=== PATIENT | female | born 1945 | race Caucasian/White ===

== ENCOUNTER 2024-07-08 17:06 | Emergency (ER) | payer OTHER, SELFPAY ==
[2024-07-08 17:08] VITALS: BP 155/78
--- NOTE | 2024-07-08 17:12 | EDRN ---
pt refusing imaging at this time.
--- NOTE | 2024-07-08 20:10 | ED.MUSCINJ ---
HPI-Injury
General
Chief Complaint: Fall
Source: patient
Exam Limitations: none
Time Seen by Provider: 07/08/24 19:18
Nursing documentation reviewed up to this point in time: agreed with
History of Present Illness-Injury
Is this injury a work related problem?: No
Is pt an associate of [facility]?: No
Initial Injury comments:
Patient states she fell while dancing. Hit back of head on floor. No LOC. Complains of mild headache, left elbow swelling, tenderness to buttocks. Incident occurred just PUTTIER
Past History
Past History
ED Past Medical History: Other (chronic back pain)
ED Past Surgical History: Orthopedic
Review of Systems
Review of Systems
Allergies reviewed?: Yes
All Other Systems: ROS reviewed and negative except as documented in HPI and ROS
Constitutional: Reports no symptoms
EENT: Reports no symptoms
Respiratory: Reports no symptoms
Cardiac: Reports no symptoms
ABD/GI: Reports no symptoms
Musculoskeletal: Reports joint swelling (swelling left posterior elbow)
Skin: Reports no symptoms
Neurological: Reports headache
Psychiatric: Reports no symptoms
Musculoskeletal Injury Exam
Musculoskeletal Injury Exam
Left Posterior Elbow:
Pain with Movement?: None
Tender to palpation?: Mild
Soft tissue swelling?: Moderate
External deformity and angulation?: None
Contusion?: Moderate
Hematoma-local bleeding into tissue?: Moderate
Strain- Sprain- Tear (Connective tissue injury)?: None
Crepitus with movement?: No
Joint instability?: No
Malalignment/deformity?: No
Range of motion: Full
Distal skin color and temperature: normal-warm & good color
Capillary Refill: normal
Normal distal neurovascular exam?: Yes
Peripheral Pulses: radial (left): 3+
Phy Exam
General Physical Exam
General Presentation: well appearing and no apparent distress
General age: appears stated age
General Skin: warm and dry
General Habitus: normal
General Mental: alert
Neurological Exam
Neurological Exam: alert, oriented x3, CN II-XII intact, no motor deficits, no sensory deficits, speech normal and normal gait
[place] Coma Scale
Eye Opening: Spontaneous
Verbal Response: Oriented
Motor Response: Obeys Commands
GCS Total Score: 15
Mental
Mental Status: oriented to person, oriented to place, oriented to time and usual mental status
Describe Speech: normal speech
Cranial
Cranial Nerves: normal
EOM (CN3/4/6): intact
Motor
Seizure Activity: none
Gait: normal
Tremors: none
Musculoskeletal Exam
Musculoskeletal Exam: neuro vasc intact
Skin Exam
Skin Exam: normal color, warm/dry and no rash
Psychiatric Exam
Psychiatric Exam: normal mood/affect
Injury Course
Orders/Labs/Results
Orders:
Orders
07/08/24 19:26
CT Head W/o Iv Contrast Urgent
Comment:
Reason For Exam: trauma
Elbow, Left [CR Elbow - Left Min 3 Views ] Urgent
Comment:
Reason For Exam: trauma
*Radiology
Radiology exam reviewed: radiology read reviewed
*Pulse Oximetry
Patient hypoxic: no
*Critical Care Note
Total Time (30-74mins, 75-104mins- exclusive of procedures): Not Applicable
ED Attending Note
-
Portions of this chart may have been created with voice recognition software.� Occasional wrong word or��sound alike� substitutions may have occurred due to the inherent limitations of voice recognition software.
Discharge Plan
Departure
Patient Disposition: Home (Routine Discharge)
Date of Disposition: 07/08/24
Time of Disposition: 20:03
Patient with high blood pressure during this ER visit?: No
Condition: Good
Covid-19: Not Applicable
Discharge Problem:
Head injury, Contusion of elbow
Instructions: Head Injury in Adults (DC), Contusion (DC), RICE Therapy
Referrals:
Luc Verdin MD [Family Provider] - Follow up in 2-3 days
Interventions
Interventions:
*Risk Screen - Suicide Last Done: 07/08/24 19:11
*General Assessment Last Done: 07/08/24 19:11
*Neglect/Abuse Screening Last Done: 07/08/24 19:11
ED- Fall Risk Assessment Last Done: 07/08/24 19:11
*ED COVID-19 Vaccine History Last Done: 07/08/24 19:11
*Nursing Disposition Last Done: 07/08/24 20:11
ED-Musculoskeletal Assessment Last Done: 07/08/24 19:11
ED- Neurological Assessment Last Done: 07/08/24 19:11
ED-Skin Assessment Last Done: 07/08/24 19:11
Discharge Date and Time
Print Language: KAZAKH
== END 2024-07-08 20:16 | disposition home or self-care (01) ==
LOC: EMR 17:06
PROVIDERS: EMERGENCY PHYSICIAN Emergency Medicine; FAMILY PHYSICIAN Family Medicine
DX: S09.90XA Unspecified injury of head, initial encounter (principal); S50.02XA Contusion of left elbow, initial encounter; W19.XXXA Unspecified fall, initial encounter
CPT/HCPCS: 99284; 70450; 73080

== ENCOUNTER 2024-08-27 15:44 | Emergency (ER) | payer OTHER, SELFPAY ==
[2024-08-27 15:53] VITALS: BP 137/40
--- NOTE | 2024-08-27 15:56 | ED.GENMED ---
ED Provider Triage
<Daryl Hassan PA-C - Last Filed: 08/27/24 15:57>
-
Patient seen by provider in Triage?: Seen in Triage
79-year-old female with intermittent fever over 2 weeks with associated cough. It started as laryngitis where she lost her voice. Her voice has returned. She has been seen by the family doctor and just finished a 5-day course of doxycycline 100
mg twice a day. She is also on Tessalon without improvement. No recent travel or surgery. She notes a right sided chest wall discomfort. Temperature last evening was 101 degrees
No respiratory distress on triage. Not hypoxic. Chest x-ray labs COVID flu test ordered.
History of Present Illness
<Daryl Hassan PA-C - Last Filed: 08/27/24 15:57>
General
Chief Complaint: Fever
Time Seen by Provider: 08/27/24 20:55
<Giana Edmond WELL DRILL OPERATOR - Last Filed: 08/27/24 23:24>
General
Source: patient
Exam Limitations: none
Nursing documentation reviewed up to this point in time: agreed with
History of Present Illness
History of Present Illness:
79 yo female with no significant PMHX states she developed cough and laryngitis 2 weeks ago. PCP put her on Doxycycline 100 mg BID for 5 days which she finished 3 days ago and her symptoms have not improved.
She developed fever 101.0 last night and pain in her right ribs. Cough has not improved.
Denies n/v/d/c.
Past History
<Daryl Hassan PA-C - Last Filed: 08/27/24 15:57>
Past History
ED Past Medical History: Other (chronic back pain)
ED Past Surgical History: Orthopedic
<Giana Edmond WELL DRILL OPERATOR - Last Filed: 08/27/24 23:24>
Past History
ED Past Medical History: Other (chronic back pain, followed by pain management)
ED Past Surgical History: Cholecystectomy
Social History
Tobacco: Former smoker
Alcohol: None
Personal: Single
Living: alone
Review of Systems
<Giana Edmond WELL DRILL OPERATOR - Last Filed: 08/27/24 23:24>
Review of Systems
Allergies reviewed?: Yes
All Other Systems: ROS reviewed and negative except as documented in HPI and ROS
Constitutional: Reports fever; Denies chills
EENT: Denies sore throat
Respiratory: Reports cough; Denies trouble breathing
Cardiac: Reports other (pain right ribs); Denies chest pain
ABD/GI: Denies abdominal pain, nausea, vomiting, diarrhea or anorexia
: Denies dysuria
Musculoskeletal: Denies edema
Skin: Reports no symptoms
Neurological: Reports no symptoms
Phy Exam
<Giana Edmond, WELL DRILL OPERATOR - Last Filed: 08/27/24 23:24>
Physical Exam
Physical Exam:
GENERAL: No acute distress. A&Ox3.
CONSTITUTIONAL: Afebrile.
EYES: clear, conjunctivae normal
ENMT: moist mucus membranes, Pharynx nl
RESPIRATORY: Regular respirations, nonlabored, lungs clear.
CARDIOVASCULAR: Regular rate and rhythm, no murmurs, no rubs.
GI: Soft, nontender, normal BS
MUSCULOSKELETAL: Moves with ease. Well perfused.
SKIN: Warm, dry, pink
PSYCH: Normal mood and affect. Well kept, interactive and appropriate
NEUROLOGIC: Awake, alert and oriented. No focal neurological deficits
Course
<Daryl Hassan PA-C - Last Filed: 08/27/24 15:57>
Orders/Labs/Results
Orders:
Orders
08/27/24 15:53
CR Chest - 2 Views Urgent
Comment:
Reason For Exam: fever, cough
08/27/24 16:03
COVID-19 Antigen Urgent
Source: Nasal Swab
Complete Blood Count/With Diff Urgent
Comprehensive Metabolic Panel Urgent
Influenza A+B Rapid Molecular Urgent
MICHA Source: Nasal Swab
Specimen Description:
08/27/24 21:34
LevoFLOXacin [Levaquin] 750 mg PO NOW STA
08/27/24 21:42
Urinalysis Reflex To Culture Urgent
Date Specimen was Collected: 08/27/24
Time Specimen was Collected: 21:33
Urine Microscopic Reflex Cult Urgent
Abnormal Lab Results
08/27/24 08/27/24
16:03 21:42
WBC 18.0 H 10^3/uL
(4.8-10.8)
MCHC 32.5 L g/dL
(33.0-37.0)
Abs Immat Gran (auto) 0.1 H 10^3/uL
(0-0.05)
Absolute Neuts (auto) 16.0 H 10^3/uL
(1.4-6.5)
Absolute Lymphs (auto) 0.9 L 10^3/uL
(1.2-3.4)
Absolute Monos (auto) 1.0 H 10^3/uL
(0.1-0.6)
Immature Gran % 0.6 H %
(0-0.5)
Neutrophils % 88.8 H %
(42.2-75.2)
Lymphocytes % 5.0 L %
(20.5-51.1)
Chloride 94 L mmol/L
(98-107)
Carbon Dioxide 31 H mmol/L
(22-30)
BUN 21 H mg/dl
(7-17)
Creatinine 1.2 H mg/dL
(0.6-1.0)
Glucose 145 H mg/dl
(70-99)
Alkaline Phosphatase 195 H U/L
(38-126)
Ur Occult Blood Reflex Trace A
(Negative)
Urine Bacteria (Reflex) Few A
(Negative)
08/27/24 16:03
08/27/24 16:03
Vital Signs
Initial and Last Documented VS:
Initial Vital Signs
Temp Pulse Resp BP Pulse Ox
98.2 F 98 16 137/40 94
08/27/24 15:53 08/27/24 15:53 08/27/24 15:53 08/27/24 15:53 08/27/24 15:53
Last Documented Vital Signs
Temp Pulse Resp BP Pulse Ox
100 F 83 18 161/85 98
08/27/24 21:36 08/27/24 21:36 08/27/24 21:36 08/27/24 21:36 08/27/24 21:36
<Giana Edmond, WELL DRILL OPERATOR - Last Filed: 08/27/24 23:24>
Orders/Labs/Results
Orders:
Orders
08/27/24 15:53
CR Chest - 2 Views Urgent
Comment:
Reason For Exam: fever, cough
08/27/24 16:03
COVID-19 Antigen Urgent
Source: Nasal Swab
Complete Blood Count/With Diff Urgent
Comprehensive Metabolic Panel Urgent
Influenza A+B Rapid Molecular Urgent
MICHA Source: Nasal Swab
Specimen Description:
08/27/24 21:34
LevoFLOXacin [Levaquin] 750 mg PO NOW STA
08/27/24 21:42
Urinalysis Reflex To Culture Urgent
Date Specimen was Collected: 08/27/24
Time Specimen was Collected: 21:33
Urine Microscopic Reflex Cult Urgent
Abnormal Lab Results
08/27/24 08/27/24
16:03 21:42
WBC 18.0 H 10^3/uL
(4.8-10.8)
MCHC 32.5 L g/dL
(33.0-37.0)
Abs Immat Gran (auto) 0.1 H 10^3/uL
(0-0.05)
Absolute Neuts (auto) 16.0 H 10^3/uL
(1.4-6.5)
Absolute Lymphs (auto) 0.9 L 10^3/uL
(1.2-3.4)
Absolute Monos (auto) 1.0 H 10^3/uL
(0.1-0.6)
Immature Gran % 0.6 H %
(0-0.5)
Neutrophils % 88.8 H %
(42.2-75.2)
Lymphocytes % 5.0 L %
(20.5-51.1)
Chloride 94 L mmol/L
(98-107)
Carbon Dioxide 31 H mmol/L
(22-30)
BUN 21 H mg/dl
(7-17)
Creatinine 1.2 H mg/dL
(0.6-1.0)
Glucose 145 H mg/dl
(70-99)
Alkaline Phosphatase 195 H U/L
(38-126)
Ur Occult Blood Reflex Trace A
(Negative)
Urine Bacteria (Reflex) Few A
(Negative)
08/27/24 16:03
08/27/24 16:03
Vital Signs
Initial and Last Documented VS:
Initial Vital Signs
Temp Pulse Resp BP Pulse Ox
98.2 F 98 16 137/40 94
08/27/24 15:53 08/27/24 15:53 08/27/24 15:53 08/27/24 15:53 08/27/24 15:53
Last Documented Vital Signs
Temp Pulse Resp BP Pulse Ox
100 F 83 18 161/85 98
08/27/24 21:36 08/27/24 21:36 08/27/24 21:36 08/27/24 21:36 08/27/24 21:36
<Giana Edmond WELL DRILL OPERATOR - Last Filed: 08/27/24 23:24>
MDM/Problems Addressed
Differential Diagnosis Includes:
PNA, bronchitis
MDM/Problems Addressed:
79 yo female with no significant PMHX states she developed cough and laryngitis 2 weeks ago. PCP put her on Doxycycline 100 mg BID for 5 days which she finished 3 days ago and her symptoms have not improved.
She developed fever 101.0 last night and pain in her right ribs. Cough has not improved.
CBC: WBC 18.0
CMP: BUN/Creat 21/1.2
Covid neg
Flu neg
CXR: Radiology report read: IMPRESSION:
Mild right upper lobe pneumonia.
Small loculated right pleural effusion versus developing right lower lobe pneumonia.
Pt had PNA in November and states she did well with Levaquin. Rx for Levaquin sent to her pharmacy
Pt is totally non toxic appearing, bright, alert and pleasant
Pt has appt w PCP in 2 days.
Pt just prior to discharge asked if we could 'check my urine.' U/A pending. Will not hold her up for results as Levaquin will most likely cover that too. She is in agreement with this plan.
U/A neg
<Giana Edmond, WELL DRILL OPERATOR - Last Filed: 08/27/24 23:24>
*Critical Care Note
Total Time (30-74mins, 75-104mins- exclusive of procedures): Not Applicable
ED Attending Note
<Daryl Hassan PA-C - Last Filed: 08/27/24 15:57>
-
Portions of this chart may have been created with voice recognition software.� Occasional wrong word or��sound alike� substitutions may have occurred due to the inherent limitations of voice recognition software.
Discharge Plan
Departure
Patient Disposition: Home (Routine Discharge)
Date of Disposition: 08/27/24
Time of Disposition: 21:34
Patient with high blood pressure during this ER visit?: No
Condition: Fair
Covid-19: Negative COVID-19
Discharge Problem:
Pneumonia
Instructions: Pneumonia in adults
Prescriptions:
New
levofloxacin 750 mg tablet
750 mg PO DAILY 4 Days Qty: 4 0RF
Referrals:
Gwen De Leon, [Family Provider] - Keep scheduled appt
Activity Restrictions/Additional Instructions:
As we discussed you have pneumonia.
I sent a prescription for Levaquin to your pharmacy. Start it tomorrow as you were given a dose here today
See your doctor as scheduled in 2 days
Interventions
Interventions:
*Risk Screen - Suicide Last Done: 08/27/24 15:57
*General Assessment Last Done: 08/27/24 21:33
*Neglect/Abuse Screening Last Done: 08/27/24 15:57
ED- Fall Risk Assessment Last Done: 08/27/24 21:44
*ED COVID-19 Vaccine History Last Done: 08/27/24 21:33
*Nursing Disposition Last Done: 08/27/24 22:05
ED- Neurological Assessment Last Done: 08/27/24 21:43
ED-Skin Assessment Last Done: 08/27/24 21:43
Discharge Date and Time
Discharge Date/Time: 08/27/24 22:06
Print Language: YI
[2024-08-27 16:11] LABS: % Basophils 0.3 % (0-2); % Immature Granulocytes 0.6 % (0-0.5); % Monocytes 5.3 % (1.7-9.3); % Neutrophils 88.8 % (42.2-75.2); Absolute Basophils 0.1 10^3/uL (0-0.2); Absolute Immature Granulocytes 0.1 10^3/uL (0-0.05); Absolute Lymphocytes 0.9 10^3/uL (1.2-3.4); Mean Corp Hgb Conc. 32.5 g/dL (33.0-37.0); Mean Corpuscular Hgb 29.3 pg (27.0-31.0); Mean Corpuscular Volume 90.1 fL (81.0-99.0); Mean Platelet Volume 8.5 fL (7.4-10.4); Nucleated Red Blood Cells % 0 %; Platelet Count 381 10^3/uL (130-400); Red Blood Cell Count 4.44 10^6/uL (4.20-5.40); Red Cell Dist. Width 12.7 % (11.5-14.5)
[2024-08-27 16:28] LABS: ALT (SGPT) 18 U/L (0-35); AST (SGOT) 26 U/L (14-36); Albumin 3.6 g/dl (3.5-5.0); Alkaline Phosphatase 195 U/L (38-126); Blood Urea Nitrogen 21 mg/dl (7-17); Calcium 9.5 mg/dl (8.4-10.2); Carbon Dioxide 31 mmol/L (22-30); Chloride 94 mmol/L (98-107); Glucose 145 mg/dl (70-99); Potassium 3.6 mmol/L (3.5-5.1); Sodium 138 mmol/L (135-145); Total Bilirubin 0.9 mg/dl (0.2-1.3); eGFR 46.62
[2024-08-27 16:36] LABS: COVID-19 Antigen Negative (Negative)
[2024-08-27 18:10] VITALS: BP 128/70
[2024-08-27 21:35] VITALS: BMI 19.1
[2024-08-27 21:36] VITALS: BP 161/85
[2024-08-27] MEDS: LEVAQUIN 750 MG PO (21:50)
[2024-08-27 22:16] LABS: Urine Albumin Trace (Neg - Trace); Urine Bilirubin Negative (Negative); Urine Character Clear (Clear); Urine Color Yellow; Urine Glucose Negative (Negative); Urine Ketone Negative (Negative); Urine Leukocyte Negative (Negative); Urine Nitrite Negative (Negative); Urine Occult Blood Trace (Negative); Urine Specific Gravity 1.015 (<1.030); Urine Urobilinogen 1+ (Neg - 1+)
[2024-08-27 22:29] LABS: Urine Mucus Moderate
[2024-08-27 22:30] LABS: Urine Bacteria Few (Negative); Urine Red Blood Cell 0-2 /HPF (0-2)
== END 2024-08-27 22:06 | disposition home or self-care (01) ==
LOC: EMR 15:44
PROVIDERS: Physician Assistant; Registered Nurse; EMERGENCY PHYSICIAN Emergency Medicine; FAMILY PHYSICIAN Family Medicine
DX: J18.9 Pneumonia, unspecified organism (principal); G89.29 Other chronic pain; Z87.891 Personal history of nicotine dependence; Z90.49 Acquired absence of other specified parts of digestive tract
CPT/HCPCS: 99283; 71046; 80053; 81003; 81015; 85025; 87502; 87811

== ENCOUNTER 2024-08-29 14:11 | Emergency (ER) | payer OTHER, SELFPAY ==
[2024-08-29] VITALS (7 sets, daily range): BP systolic 85–177; BP diastolic 55–87; BMI 23.4
[2024-08-29 14:33] LABS: % Basophils 0.2 % (0-2); % Immature Granulocytes 0.6 % (0-0.5); % Lymphocytes 4.9 % (20.5-51.1); % Monocytes 5.6 % (1.7-9.3); % Neutrophils 88.7 % (42.2-75.2); Absolute Immature Granulocytes 0.1 10^3/uL (0-0.05); Absolute Lymphocytes 0.9 10^3/uL (1.2-3.4); Absolute Neutrophils 16.5 10^3/uL (1.4-6.5); Mean Corp Hgb Conc. 32.4 g/dL (33.0-37.0); Mean Corpuscular Hgb 29.3 pg (27.0-31.0); Mean Corpuscular Volume 90.5 fL (81.0-99.0); Mean Platelet Volume 8.5 fL (7.4-10.4); Nucleated Red Blood Cells % 0 %; Platelet Count 401 10^3/uL (130-400); Red Blood Cell Count 4.09 10^6/uL (4.20-5.40); Red Cell Dist. Width 12.9 % (11.5-14.5); White Blood Cell Count 18.6 10^3/uL (4.8-10.8)
[2024-08-29 14:45] LABS: ALT (SGPT) 16 U/L (0-35); AST (SGOT) 21 U/L (14-36); Albumin 3.3 g/dl (3.5-5.0); Alkaline Phosphatase 168 U/L (38-126); Blood Urea Nitrogen 21 mg/dl (7-17); Calcium 9.6 mg/dl (8.4-10.2); Carbon Dioxide 33 mmol/L (22-30); Chloride 92 mmol/L (98-107); Glucose 125 mg/dl (70-99); Potassium 3.5 mmol/L (3.5-5.1); Sodium 136 mmol/L (135-145); Total Bilirubin 0.9 mg/dl (0.2-1.3); Total Protein 6.5 g/dl (6.3-8.2); eGFR 51.75
--- NOTE | 2024-08-29 19:03 | ED.GENMED ---
History of Present Illness
General
Chief Complaint: Breathing Problem
Source: patient and family
Exam Limitations: none
Time Seen by Provider: 08/29/24 18:52
Nursing documentation reviewed up to this point in time: agreed with
History of Present Illness
History of Present Illness:
Patient diagnosed with pneumonia 2 days ago, and started on Levaquin, returns to ED with continual intermittent cough, but worsening lower rib pain. Patient is on day 3 of Levaquin 750 mg. Denies fever or chills. Denies nausea or vomiting.
Denies loss of appetite. Denies diarrhea. Denies abdominal pain. Denies dizziness. Denies headache. Denies neck pain. Of note, patient has had intermittent cough for the past 2 weeks, along with 'laryngitis'.
Past History
Past History
ED Past Medical History: Other (chronic back pain, followed by pain management)
ED Past Surgical History: Cholecystectomy and Orthopedic
Social History
Tobacco: Former smoker
Alcohol: None
Personal: Single
Living: alone
Review of Systems
Review of Systems
Allergies reviewed?: Yes
All Other Systems: ROS reviewed and negative except as documented in HPI and ROS
Constitutional: Reports no symptoms
EENT: Reports no symptoms
Respiratory: Reports cough
Cardiac: Reports chest pain
ABD/GI: Reports no symptoms
: Reports no symptoms
Musculoskeletal: Reports other (rib pain)
Skin: Reports no symptoms
Neurological: Reports no symptoms
Phy Exam
Physical Exam
Physical Exam:
Physical Exam
General: mild painful distress, not acutely ill. afebrile
Head: nc/at. eomi
Neck: supple. no meningeal signs.
Heart: s1/s2 regular rate and rhythm, no murmur. equal radial pulses.
Lungs: no acute respiratory distress. clear bilaterally. mild tenderness to palpation over right lateral rib along midaxillary line at level of rib #10-12, without ecchymosis/swelling/erythema.
Abdomen: normal bowel sounds. not tender.
Neuro: alert and oriented. no focal neurological deficits
Skin: no rash
Psychiatric: well kept. interactive and cooperative
Extremities: no edema. no calf tenderness.
Scores
Heart Failure Risk
Heart Failure Risk Score: Not Applicable
Course
Orders/Labs/Results
Orders:
Orders
08/29/24 14:23
Complete Blood Count/With Diff Urgent
Comprehensive Metabolic Panel Urgent
08/29/24 19:03
CT Chest Pe Study Urgent
Comment:
Reason For Exam: lower CP
Ketorolac [Toradol] 15 mg IV NOW STA
08/29/24 21:11
Ketorolac [Toradol] 15 mg .ROUTE .STK-MED ONE
08/29/24 21:25
Dexamethasone Sod Phosphate [Decadron] 10 mg IV NOW STA
Abnormal Lab Results
08/29/24
14:23
WBC 18.6 H 10^3/uL
(4.8-10.8)
RBC 4.09 L 10^6/uL
(4.20-5.40)
MCHC 32.4 L g/dL
(33.0-37.0)
Plt Count 401 H 10^3/uL
(130-400)
Abs Immat Gran (auto) 0.1 H 10^3/uL
(0-0.05)
Absolute Neuts (auto) 16.5 H 10^3/uL
(1.4-6.5)
Absolute Lymphs (auto) 0.9 L 10^3/uL
(1.2-3.4)
Absolute Monos (auto) 1.0 H 10^3/uL
(0.1-0.6)
Immature Gran % 0.6 H %
(0-0.5)
Neutrophils % 88.7 H %
(42.2-75.2)
Lymphocytes % 4.9 L %
(20.5-51.1)
Chloride 92 L mmol/L
(98-107)
Carbon Dioxide 33 H mmol/L
(22-30)
BUN 21 H mg/dl
(7-17)
Creatinine 1.1 H mg/dL
(0.6-1.0)
Glucose 125 H mg/dl
(70-99)
Alkaline Phosphatase 168 H U/L
(38-126)
Albumin 3.3 L g/dl
(3.5-5.0)
08/29/24 14:23
08/29/24 14:23
Vital Signs
Initial and Last Documented VS:
Initial Vital Signs
Temp Pulse Resp BP Pulse Ox
98.6 F 85 18 122/71 96
08/29/24 14:14 08/29/24 14:14 08/29/24 14:14 08/29/24 14:14 08/29/24 14:14
Last Documented Vital Signs
Temp Pulse Resp BP Pulse Ox
98.7 F 88 23 177/87 92
08/29/24 16:25 08/29/24 21:30 08/29/24 21:30 08/29/24 21:17 08/29/24 21:30
MDM/Problems Addressed
MDM/Problems Addressed:
CTA chest report reviewed and discussed with patient. History and exam consistent with likely bronchitis versus pneumonia, with inflammatory changes noted. Patient will be advised to continue already prescribed antibiotics, but will add course of
steroids for symptomatic relief, along with recommendation to follow-up with PCP for reevaluation next week. In addition, patient advised to take NSAIDs, but states that she already takes Celebrex daily for chronic back pain. Patient otherwise is
afebrile, alert, awake, without any acute respiratory distress, with stable vital signs, at time of discharge.
*Critical Care Note
Total Time (30-74mins, 75-104mins- exclusive of procedures): Not Applicable
ED Attending Note
-
Portions of this chart may have been created with voice recognition software.� Occasional wrong word or��sound alike� substitutions may have occurred due to the inherent limitations of voice recognition software.
Discharge Plan
Departure
Patient Disposition: Home (Routine Discharge)
Date of Disposition: 08/29/24
Time of Disposition: 21:27
Patient with high blood pressure during this ER visit?: Yes
Condition: Good
Discharge Problem:
Pneumonia
Instructions: Pneumonia, Adult (DC)
Prescriptions:
New
methylprednisolone [Medrol (Wu)] 4 mg tablets,dose pack
4 mg PO DAILY Qty: 21 0RF
No Action
levofloxacin 750 mg tablet
750 mg PO DAILY 4 Days Qty: 4 0RF
Referrals:
Gwen De Leon DO [Family Provider] -
Activity Restrictions/Additional Instructions:
As discussed, please follow-up with your primary care physician for reevaluation next week. Your prescription has been sent electronically to [facility] pharmacy in [facility].
Interventions
Interventions:
*Risk Screen - Suicide Last Done: 08/29/24 14:14
*General Assessment Last Done: 08/29/24 14:14
*Neglect/Abuse Screening Last Done: 08/29/24 14:14
ED- Fall Risk Assessment Last Done: 08/29/24 18:12
*ED COVID-19 Vaccine History Last Done: 08/29/24 18:12
*Nursing Disposition Last Done: 08/29/24 22:08
ED- Cardiac Assessment Last Done: 08/29/24 18:14
ED- Pulmonary Assessment Last Done: 08/29/24 18:12
Discharge Date and Time
Print Language: GREEK
[2024-08-29] MEDS: TORADOL 15 MG IV (21:11)
[2024-08-29] MEDS: DECADRON 10 MG IV (21:33)
== END 2024-08-29 22:09 | disposition home or self-care (01) ==
LOC: EMR 14:11
PROVIDERS: Emergency Medicine; EMERGENCY PHYSICIAN Emergency Medicine; FAMILY PHYSICIAN Family Medicine
DX: J18.9 Pneumonia, unspecified organism (principal); G89.29 Other chronic pain; Z87.891 Personal history of nicotine dependence
CPT/HCPCS: 96374; 96375; 99284; 71275; 80053; 85025; Q9967